=== PATIENT | female | born 2005 | race Two or more races ===

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

== ENCOUNTER 2024-01-15 11:00 | Emergency (ER) | payer MEDICAID ==
[~2024-01-15] VITALS: Ht 162.6 cm; Wt 88.2 kg
[~2024-01-15 11:00] MED LIST: ALBU108A5 IN; METH4PAK PO
[2024-01-15 11:33] VITALS: BP 144/77; PULSE 103; RESP 20; TEMP 98.4; O2SAT 97
[2024-01-15] MEDS: IPRATROPIUM BROM 0.5 MG/2.5ML INH SOL NEB ONE (12:17)
[2024-01-15] MEDS: ALBUTEROL SULF 2.5 MG/0.5ML(0.5%) NEB SOLN NEB ONE (12:17)
[2024-01-15] MEDS: DexAMETHasone SOD PHOS 10MG/1ML VIAL INJ IM ONE (12:36)
[2024-01-15] MEDS ORDERED: METH4PAK PO (12:56)
[2024-01-15] MEDS ORDERED: BECL40AE11 IN (12:56)
== END 2024-01-15 13:19 | disposition home or self-care (01) ==
LOC: ER 11:00
DX: J45.901 Unspecified asthma with (acute) exacerbation (principal); Z79.899 Other long term (current) drug therapy
CPT/HCPCS: 94640; 96372; 99283; J1100